=== PATIENT | female | born 1965 | race Two or more races ===

== ENCOUNTER 2022-02-15 21:20 | Inpatient (IN) | payer MEDICAID, OTHER ==
[~2022-02-15] VITALS: Ht 162.6 cm; Wt 52.9 kg
[2022-02-16] MEDS ORDERED: ASPirin 81 mg TAB PO ONE (07:45)
[2022-02-16] MEDS ORDERED: SODIUM CHLORIDE 0.9% 1,000 ML IV ONE ×3 (07:45→17:15)
[2022-02-16 08:10] LABS: Basophils # (auto) 0.1 10 ^3/uL (0-0.2); Basophils % (auto) 0.7 % (0.0-2.0); Eosinophils # (auto) 0.6 10 ^3/uL (0-0.8); Eosinophils % (auto) 7.4 % (0.0-7.0); Hemoglobin 11.7 g/dL (12.2-16.2); Lymphocytes # (auto) 0.5 10 ^3/uL (0.4-5.4); Mean Corpuscular Hgb Conc. 32.6 g/dL (32.0-36.0); Monocytes # (auto) 0.7 10 ^3/uL (0-1.3); Monocytes % (auto) 8.7 % (0.0-12.0); Neutrophils # (auto) 6.5 10 ^3/uL (1.6-8.6); Neutrophils % (auto) 77.2 % (37.0-80.0); Red Blood Cells 4.05 10^6/uL (4.0-5.20); Red Cell Distribution Width 13.8 % (11.8-14.3); White Blood Cell 8.4 10^3/uL (4.4-10.8)
[2022-02-16 09:00] LABS: Albumin 3.7 g/dL (3.4-5.0); Calcium 9.6 mg/dL (8.5-10.1); Magnesium 1.8 mg/dL (1.6-2.6); Potassium 4.6 mmol/L (3.5-5.1)
[2022-02-16 09:04] LABS: BUN/Creatinine Ratio 22.7; Bilirubin, Total 0.6 mg/dL (0.2-1.0); Total Protein 6.8 g/dL (6.4-8.2)
[2022-02-16] MEDS ORDERED: ENOXAPARIN SOD 60 MG/0.6 ML SYRINGE SC ONE (15:45)
[2022-02-16] MEDS ORDERED: AZITHROMYCIN 500MG/ 250ML 250 ML IV ONE (16:30)
[2022-02-16] MEDS ORDERED: FUROSEMIDE 20 MG/2 ML VIAL IV ONE (16:30)
[2022-02-16 16:42] LABS: INR 1.08 (0.9-1.15); Partial Thromboplastin Time 34.2 sec (24.6-33.4)
[2022-02-16] MEDS ORDERED: HYDROmorphone HCL 2 MG/ML VL/or syr IV PRN (17:15)
[2022-02-16] MEDS ORDERED: NITROGLYCERIN 0.4 MG SL TAB SL PRN (17:15)
[2022-02-16] MEDS ORDERED: MORPHINE SULFATE INJ 2 MG/ml SYRG IV PRN (17:15)
[2022-02-16] MEDS ORDERED: ACETAMINOPHEN 325 MG TAB PO PRN (17:15)
[2022-02-16] MEDS ORDERED: ONDANSETRON HCL 4 MG/2 ML VIAL IV PRN (17:15)
[2022-02-16] MEDS ORDERED: HYDROcodone-ACET 5/325MG TAB PO PRN (17:15)
[2022-02-16] MEDS ORDERED: DOCUSATE SOD 100 MG CAP PO PRN (17:15)
[2022-02-16] MEDS ORDERED: SODIUM CHLORIDE 0.9% 500 ML IV ONE (17:15)
[2022-02-16] MEDS ORDERED: IOHEXOL 350 MG/ML 100ML IJ ONE (17:35)
[2022-02-16] MEDS: cefTRIAXone 1GM/50ML D5W 50 ML IV SCH (17:50)
[2022-02-16] MEDS: HEPARIN SODIUM (PORCINE) 5000 UNITS/ML 1ML VIAL SC SCH (17:52)
[2022-02-16] MEDS: AZITHROMYCIN 500MG/ 250ML 250 ML IV SCH (18:50)
[2022-02-16] MEDS: SODIUM CHLOR 0.9% PF (SALINE LOCK) 10ML VIAL/SYR IV SCH (22:59)
[2022-02-17] VITALS (7 sets, daily range): BP systolic 150–164; BP diastolic 75–91
[2022-02-17] MEDS: HEPARIN SODIUM (PORCINE) 5000 UNITS/ML 1ML VIAL SC SCH ×3 (01:37→18:14)
[2022-02-17] MEDS ORDERED: TACR1CAP19 OR (01:43)
[2022-02-17] MEDS ORDERED: PRE1T PO (01:43)
[2022-02-17] MEDS ORDERED: MYCO180T PO (01:43)
[2022-02-17] MEDS ORDERED: DILT120C20 PO (01:43)
[2022-02-17] MEDS ORDERED: LABE200T7 PO (01:43)
[2022-02-17] MEDS ORDERED: CINA30TA2 PO (03:59)
[2022-02-17] MEDS: SODIUM CHLOR 0.9% PF (SALINE LOCK) 10ML VIAL/SYR IV SCH ×3 (06:00→21:14)
[2022-02-17 08:12] LABS: Urine Bacteria NONE SEEN /hpf (None Seen); Urine Blood Negative /uL (Negative); Urine Specific Gravity 1.031 (1.001-1.035); Urine WBC 22 /hpf (0 - 5)
[2022-02-17] MEDS: cefTRIAXone 1GM/50ML D5W 50 ML IV SCH (08:42)
[2022-02-17] MEDS: AZITHROMYCIN 500MG/ 250ML 250 ML IV SCH (15:34)
[2022-02-17] MEDS: LABETALOL HCL 200 MG TAB PO SCH (21:12)
[2022-02-17] MEDS: dilTIAZem HCL 180MG ER CAP PO SCH (22:52)
[2022-02-18 00:15] VITALS: BP 160/78
[2022-02-18] MEDS: HEPARIN SODIUM (PORCINE) 5000 UNITS/ML 1ML VIAL SC SCH ×3 (01:10→18:27)
[2022-02-18 05:00] VITALS: BP 151/80
[2022-02-18] MEDS: SODIUM CHLOR 0.9% PF (SALINE LOCK) 10ML VIAL/SYR IV SCH ×3 (05:01→21:34)
[2022-02-18 07:28] LABS: Basophils # (auto) 0 10 ^3/uL (0-0.2); Basophils % (auto) 0.7 % (0.0-2.0); Eosinophils # (auto) 0.6 10 ^3/uL (0-0.8); Eosinophils % (auto) 8.8 % (0.0-7.0); Hematocrit 34.1 % (36.0-46.0); Hemoglobin 11.4 g/dL (12.2-16.2); Lymphocytes # (auto) 0.7 10 ^3/uL (0.4-5.4); Lymphocytes % (auto) 10.6 % (10.0-50.0); Mean Corpuscular Hemoglobin 29.6 pg (28.0-32.0); Mean Corpuscular Hgb Conc. 33.3 g/dL (32.0-36.0); Mean Corpuscular Volume 88.8 fL (80.0-100.0); Monocytes # (auto) 0.7 10 ^3/uL (0-1.3); Monocytes % (auto) 10.4 % (0.0-12.0); Neutrophils # (auto) 4.4 10 ^3/uL (1.6-8.6); Neutrophils % (auto) 69.5 % (37.0-80.0); Red Blood Cells 3.84 10^6/uL (4.0-5.20); Red Cell Distribution Width 13.6 % (11.8-14.3); White Blood Cell 6.3 10^3/uL (4.4-10.8)
[2022-02-18 07:46] LABS: Calcium 8.9 mg/dL (8.5-10.1); Potassium 4.5 mmol/L (3.5-5.1)
[2022-02-18 07:49] LABS: BUN/Creatinine Ratio 18.5
[2022-02-18 08:38] VITALS: BP 140/78
[2022-02-18] MEDS: predniSONE 1 MG TAB PO SCH (09:44)
[2022-02-18] MEDS: LABETALOL HCL 200 MG TAB PO SCH ×2 (09:45→21:32)
[2022-02-18] MEDS: dilTIAZem HCL 180MG ER CAP PO SCH (09:45)
[2022-02-18] MEDS: cefTRIAXone 1GM/50ML D5W 50 ML IV SCH (09:47)
[2022-02-18] MEDS ORDERED: dilTIAZem HCL 180MG ER CAP PO SCH (10:00)
[2022-02-18] MEDS: AZITHROMYCIN 500MG/ 250ML 250 ML IV SCH (11:43)
[2022-02-18 13:00] VITALS: BP 143/77
[2022-02-18 17:05] VITALS: BP 144/66
[2022-02-18 22:00] VITALS: BP 150/79
[2022-02-19] MEDS: HEPARIN SODIUM (PORCINE) 5000 UNITS/ML 1ML VIAL SC SCH ×3 (01:22→17:15)
[2022-02-19 05:00] VITALS: BP 132/68
[2022-02-19] MEDS: SODIUM CHLOR 0.9% PF (SALINE LOCK) 10ML VIAL/SYR IV SCH ×3 (05:27→21:25)
[2022-02-19 05:45] LABS: Basophils # (auto) 0.1 10 ^3/uL (0-0.2); Basophils % (auto) 0.9 % (0.0-2.0); Eosinophils # (auto) 0.6 10 ^3/uL (0-0.8); Eosinophils % (auto) 7.8 % (0.0-7.0); Hematocrit 33.8 % (36.0-46.0); Hemoglobin 11.5 g/dL (12.2-16.2); Lymphocytes # (auto) 0.6 10 ^3/uL (0.4-5.4); Mean Corpuscular Hemoglobin 29.9 pg (28.0-32.0); Monocytes # (auto) 0.6 10 ^3/uL (0-1.3); Monocytes % (auto) 8.7 % (0.0-12.0); Neutrophils # (auto) 5.2 10 ^3/uL (1.6-8.6); Neutrophils % (auto) 73.6 % (37.0-80.0); Red Blood Cells 3.84 10^6/uL (4.0-5.20); Red Cell Distribution Width 13.5 % (11.8-14.3)
[2022-02-19 05:58] LABS: Calcium 9.4 mg/dL (8.5-10.1); Potassium 4.7 mmol/L (3.5-5.1)
[2022-02-19 06:01] LABS: BUN/Creatinine Ratio 24.1
[2022-02-19 09:00] VITALS: BP 144/79
[2022-02-19] MEDS ORDERED: SODIUM CHLORIDE 0.9% 1,000 ML IV SCH (09:00)
[2022-02-19] MEDS: LABETALOL HCL 200 MG TAB PO SCH ×2 (09:54→21:25)
[2022-02-19] MEDS: predniSONE 1 MG TAB PO SCH (09:55)
[2022-02-19] MEDS: dilTIAZem HCL 180MG ER CAP PO SCH (10:00)
[2022-02-19] MEDS: AZITHROMYCIN 500MG/ 250ML 250 ML IV SCH (10:00)
[2022-02-19] MEDS: cefTRIAXone 1GM/50ML D5W 50 ML IV SCH (10:03)
[2022-02-19] MEDS: ACETYLCYSTEINE ORAL for CIN 20%(200MG/ML) 4ML PO SCH ×3 (11:30→21:49)
[2022-02-19] MEDS: SODIUM CHLORIDE 0.9% 1,000 ML IV SCH ×2 (11:30→23:38)
[2022-02-19 13:00] VITALS: BP 129/74
[2022-02-19 16:39] VITALS: BP 146/75
[2022-02-19 22:06] VITALS: BP 160/80
[2022-02-20] MEDS: HEPARIN SODIUM (PORCINE) 5000 UNITS/ML 1ML VIAL SC SCH ×3 (01:40→17:20)
[2022-02-20 05:03] VITALS: BP 146/77
[2022-02-20] MEDS: SODIUM CHLOR 0.9% PF (SALINE LOCK) 10ML VIAL/SYR IV SCH ×2 (05:37→12:58)
[2022-02-20 06:04] LABS: Basophils # (auto) 0.1 10 ^3/uL (0-0.2); Eosinophils # (auto) 0.4 10 ^3/uL (0-0.8); Eosinophils % (auto) 7.9 % (0.0-7.0); Hematocrit 35.2 % (36.0-46.0); Hemoglobin 11.5 g/dL (12.2-16.2); Lymphocytes # (auto) 0.8 10 ^3/uL (0.4-5.4); Lymphocytes % (auto) 13.5 % (10.0-50.0); Mean Corpuscular Hemoglobin 28.9 pg (28.0-32.0); Mean Corpuscular Hgb Conc. 32.6 g/dL (32.0-36.0); Mean Corpuscular Volume 88.5 fL (80.0-100.0); Monocytes # (auto) 0.5 10 ^3/uL (0-1.3); Monocytes % (auto) 8.5 % (0.0-12.0); Neutrophils # (auto) 3.9 10 ^3/uL (1.6-8.6); Neutrophils % (auto) 69.1 % (37.0-80.0); Nucleated Red Blood Cells % 0.1 %; Red Blood Cells 3.98 10^6/uL (4.0-5.20); Red Cell Distribution Width 13.9 % (11.8-14.3); White Blood Cell 5.6 10^3/uL (4.4-10.8)
[2022-02-20 06:07] LABS: BUN/Creatinine Ratio 25.2; Calcium 9.5 mg/dL (8.5-10.1); Potassium 4.3 mmol/L (3.5-5.1)
[2022-02-20] MEDS: SODIUM CHLORIDE 0.9% 1,000 ML IV SCH ×2 (06:09→10:01)
[2022-02-20 09:13] VITALS: BP 145/73
[2022-02-20] MEDS: predniSONE 1 MG TAB PO SCH (09:40)
[2022-02-20] MEDS: AZITHROMYCIN 500MG/ 250ML 250 ML IV SCH (09:41)
[2022-02-20] MEDS: dilTIAZem HCL 180MG ER CAP PO SCH (09:41)
[2022-02-20] MEDS: LABETALOL HCL 200 MG TAB PO SCH (09:41)
[2022-02-20] MEDS: cefTRIAXone 1GM/50ML D5W 50 ML IV SCH (09:41)
[2022-02-20] MEDS: ACETYLCYSTEINE ORAL for CIN 20%(200MG/ML) 4ML PO SCH (09:42)
[2022-02-20] MEDS ORDERED: AMOX500T86 PO (11:12)
[2022-02-20 13:47] VITALS: BP 149/78
[2022-02-20 15:24] VITALS: BP 149/76
[2022-02-20 16:27] VITALS: BP 150/72
== END 2022-02-20 18:45 | disposition home or self-care (01) | DRG 469 ==
LOC: ER 21:20 → TELE-WESTW 02-16 17:14
PROVIDERS: ADMIT Internal Medicine; ATTEND Internal Medicine Pulmonary Disease
DX: N17.9 Acute kidney failure, unspecified (principal); J96.01 Acute respiratory failure with hypoxia; I50.21 Acute systolic (congestive) heart failure; D84.9 Immunodeficiency, unspecified; I24.9 Acute ischemic heart disease, unspecified; J18.9 Pneumonia, unspecified organism; I13.0 Hypertensive heart and chronic kidney disease with heart failure and stage 1 through stage 4 chronic kidney disease, or unspecified chronic kidney disease; Z94.0 Kidney transplant status; Z20.822 Contact with and (suspected) exposure to COVID-19; E03.9 Hypothyroidism, unspecified; Z82.3 Family history of stroke; Z90.710 Acquired absence of both cervix and uterus; Z99.2 Dependence on renal dialysis; N18.31 Chronic kidney disease, stage 3a
CPT/HCPCS: 36415; 80048; 80053; 81001; 83605; 83735; 83880; 84443; 84484; 84550; 85025; 85379; 85610; 85652; 85730; 86141; 93005; 93306; 96365; 96367; 96372; G0378; J0696

== ENCOUNTER 2022-10-11 20:40 | Inpatient (IN) | payer MEDICAID ==
[~2022-10-11] VITALS: Ht 160 cm; Wt 57.1 kg
[~2022-10-11 20:40] MED LIST: AMOX500T86 PO; CINA30TA2 PO; DILT120C20 PO; LABE200T7 PO; MYCO180T PO; PRE1T PO; TACR1CAP19 OR
[2022-10-11] MEDS ORDERED: SODIUM CHLORIDE 0.9% 500 ML IVB ONE (21:15)
[2022-10-11] MEDS ORDERED: MORPHINE SULFATE 4 MG/ML SYR/VIAL IV ONE (21:15)
[2022-10-11] MEDS ORDERED: ONDANSETRON HCL 4 MG/2 ML VIAL IV ONE (21:15)
[2022-10-11] MEDS ORDERED: metroNIDAZOLE 500MG/100ML 100 ML IV ONE (22:00)
[2022-10-11 22:31] LABS: Basophils # (auto) 0 10 ^3/uL (0-0.2); Basophils % (auto) 0.3 % (0.0-2.0); Eosinophils # (auto) 0.1 10 ^3/uL (0-0.8); Eosinophils % (auto) 0.9 % (0.0-7.0); Hematocrit 37.4 % (36.0-46.0); Hemoglobin 12.4 g/dL (12.2-16.2); Lymphocytes # (auto) 0.7 10 ^3/uL (0.4-5.4); Lymphocytes % (auto) 7.6 % (10.0-50.0); Mean Corpuscular Hemoglobin 30.5 pg (28.0-32.0); Mean Corpuscular Hgb Conc. 33.1 g/dL (32.0-36.0); Mean Corpuscular Volume 91.9 fL (80.0-100.0); Monocytes # (auto) 0.6 10 ^3/uL (0-1.3); Neutrophils # (auto) 8.4 10 ^3/uL (1.6-8.6); Neutrophils % (auto) 85.2 % (37.0-80.0); Nucleated Red Blood Cells % 0.1 %; Red Blood Cells 4.06 10^6/uL (4.0-5.20); Red Cell Distribution Width 13.8 % (11.8-14.3); White Blood Cell 9.8 10^3/uL (4.4-10.8)
[2022-10-11 22:52] LABS: Albumin 3.7 g/dL (3.4-5.0); BUN/Creatinine Ratio 27.1; Calcium 10.2 mg/dL (8.5-10.1); Potassium 4.1 mmol/L (3.5-5.1)
[2022-10-11 22:55] LABS: Bilirubin, Total 0.8 mg/dL (0.2-1.0); Total Protein 6.8 g/dL (6.4-8.2)
[2022-10-12] MEDS ORDERED: hydrALAZINE HCL 20 MG/ML VL IV PRN (03:45)
[2022-10-12] MEDS ORDERED: HYDROcodone-ACET 5/325MG TAB PO PRN (03:45)
[2022-10-12] MEDS ORDERED: ONDANSETRON HCL 4 MG/2 ML VIAL IV PRN (03:45)
[2022-10-12] MEDS ORDERED: MORPHINE SULFATE INJ 2 MG/ml SYRG IV PRN ×2 (03:45→04:30)
[2022-10-12] MEDS ORDERED: DOCUSATE SOD 100 MG CAP PO PRN (03:45)
[2022-10-12] MEDS ORDERED: NITROGLYCERIN 0.4 MG SL TAB SL PRN (04:30)
[2022-10-12] MEDS: metroNIDAZOLE 500MG/100ML 100 ML IV SCH ×3 (07:03→22:48)
[2022-10-12] MEDS: D5W/SOD CHLO 0.9% 1,000 ML IV SCH ×2 (07:04→17:05)
[2022-10-12] MEDS: ACETAMINOPHEN 325 MG TAB PO PRN ×2 (08:33→16:34)
[2022-10-12] MEDS ORDERED: TACROLIMUS 1 MG CAP PO SCH (10:00)
[2022-10-12] MEDS: dilTIAZem HCL 180MG ER CAP PO SCH (10:49)
[2022-10-12] MEDS: FAMOTIDINE (10MG/ML) 2ML VL IV SCH ×2 (10:49→22:48)
[2022-10-12] MEDS ORDERED: cefTRIAXone 1GM/50ML D5W 50 ML IV ONE (12:45)
[2022-10-12 14:37] VITALS: BP 148/67
[2022-10-12 14:58] LABS: Urine Bacteria NONE SEEN /hpf (None Seen); Urine Blood Negative /uL (Negative); Urine Specific Gravity 1.013 (1.001-1.035); Urine WBC 4 /hpf (0 - 5)
[2022-10-12] MEDS ORDERED: ACET-1158 PO (16:15)
[2022-10-12] MEDS ORDERED: CINA30TA14 PO (16:15)
[2022-10-12] MEDS ORDERED: LOSA-69 PO (16:15)
[2022-10-12 17:00] VITALS: BP 148/66
[2022-10-12 22:00] VITALS: BP 138/69
[2022-10-12] MEDS: LABETALOL HCL 200 MG TAB PO SCH (22:48)
[2022-10-13] MEDS: D5W/SOD CHLO 0.9% 1,000 ML IV SCH ×2 (04:05→21:35)
[2022-10-13 05:00] VITALS: BP 120/62
[2022-10-13 05:51] LABS: Basophils # (auto) 0 10 ^3/uL (0-0.2); Basophils % (auto) 0.2 % (0.0-2.0); Eosinophils # (auto) 0.1 10 ^3/uL (0-0.8); Eosinophils % (auto) 1.1 % (0.0-7.0); Hematocrit 35.1 % (36.0-46.0); Hemoglobin 11.8 g/dL (12.2-16.2); Lymphocytes # (auto) 0.6 10 ^3/uL (0.4-5.4); Lymphocytes % (auto) 7.5 % (10.0-50.0); Mean Corpuscular Hemoglobin 30.8 pg (28.0-32.0); Mean Corpuscular Hgb Conc. 33.6 g/dL (32.0-36.0); Mean Corpuscular Volume 91.6 fL (80.0-100.0); Monocytes # (auto) 0.6 10 ^3/uL (0-1.3); Monocytes % (auto) 7.6 % (0.0-12.0); Neutrophils # (auto) 7.1 10 ^3/uL (1.6-8.6); Neutrophils % (auto) 83.6 % (37.0-80.0); Red Blood Cells 3.83 10^6/uL (4.0-5.20); Red Cell Distribution Width 13.5 % (11.8-14.3); White Blood Cell 8.4 10^3/uL (4.4-10.8)
[2022-10-13 06:02] LABS: BUN/Creatinine Ratio 12.8; Calcium 9.4 mg/dL (8.5-10.1); Magnesium 1.6 mg/dL (1.6-2.6); Potassium 4.4 mmol/L (3.5-5.1)
[2022-10-13] MEDS: metroNIDAZOLE 500MG/100ML 100 ML IV SCH ×3 (06:56→21:34)
[2022-10-13 08:00] VITALS: BP 118/61
[2022-10-13 09:00] VITALS: BP 118/61
[2022-10-13] MEDS: FAMOTIDINE (10MG/ML) 2ML VL IV SCH ×2 (09:52→21:34)
[2022-10-13] MEDS: LOSARTAN POTASSIUM 50 MG TAB PO SCH (09:53)
[2022-10-13] MEDS: LABETALOL HCL 200 MG TAB PO SCH ×2 (09:53→21:42)
[2022-10-13] MEDS: dilTIAZem HCL 180MG ER CAP PO SCH (09:54)
[2022-10-13] MEDS: CINACALCET HYDROCHLORIDE 30 MG TAB PO SCH (09:54)
[2022-10-13] MEDS: cefTRIAXone 1GM/50ML D5W 50 ML IV SCH (09:54)
[2022-10-13 13:00] VITALS: BP 138/66
[2022-10-13 17:00] VITALS: BP 123/60
[2022-10-13] MEDS: ACETAMINOPHEN 325 MG TAB PO PRN (18:14)
[2022-10-13 22:14] VITALS: BP 120/63
[2022-10-14 04:53] VITALS: BP 137/66
[2022-10-14] MEDS: metroNIDAZOLE 500MG/100ML 100 ML IV SCH ×2 (05:37→14:00)
[2022-10-14 06:08] LABS: Potassium 4.1 mmol/L (3.5-5.1)
[2022-10-14 06:11] LABS: BUN/Creatinine Ratio 10.1
[2022-10-14 08:00] VITALS: BP 156/80
[2022-10-14] MEDS: D5W/SOD CHLO 0.9% 1,000 ML IV SCH (09:05)
[2022-10-14] MEDS: FAMOTIDINE (10MG/ML) 2ML VL IV SCH (10:04)
[2022-10-14] MEDS: cefTRIAXone 1GM/50ML D5W 50 ML IV SCH (10:04)
[2022-10-14] MEDS: LOSARTAN POTASSIUM 50 MG TAB PO SCH (10:05)
[2022-10-14] MEDS: CINACALCET HYDROCHLORIDE 30 MG TAB PO SCH (10:05)
[2022-10-14] MEDS: dilTIAZem HCL 180MG ER CAP PO SCH (10:05)
[2022-10-14] MEDS: LABETALOL HCL 200 MG TAB PO SCH (10:06)
[2022-10-14] MEDS ORDERED: METR500T PO (10:52)
[2022-10-14] MEDS ORDERED: CIPR-173 PO (10:52)
[2022-10-14 12:00] VITALS: BP 136/70
[2022-10-14 12:43] VITALS: BP 135/73
== END 2022-10-14 15:35 | disposition home or self-care (01) | DRG 244 ==
LOC: ER 20:40 → OVERFLOW 10-12 04:27 → EAST 10-12 14:17
PROVIDERS: ADMIT Nurse Practitioner Family; ATTEND Internal Medicine Geriatric Medicine
DX: K57.32 Diverticulitis of large intestine without perforation or abscess without bleeding (principal); N17.9 Acute kidney failure, unspecified; E03.9 Hypothyroidism, unspecified; E83.52 Hypercalcemia; E86.0 Dehydration; I12.9 Hypertensive chronic kidney disease with stage 1 through stage 4 chronic kidney disease, or unspecified chronic kidney disease; N18.9 Chronic kidney disease, unspecified; Z90.710 Acquired absence of both cervix and uterus; Z94.0 Kidney transplant status; Z20.822 Contact with and (suspected) exposure to COVID-19
CPT/HCPCS: 36415; 74176; 80048; 80053; 81001; 83690; 83735; 85025; 87040; 87426; 96365; 96375; G0378; J0696; J2405; J3490; J7042; J7507